=== PATIENT | male | born 1965 | race African-American/Black ===

== ENCOUNTER 2018-06-15 13:48 | Day surgery (SDC) | payer BC ==
[2018-06-12 11:23] VITALS: BMI 24.9
[2018-06-15] MEDS ORDERED: BUPIVACAINE HCL/PF 0.5% (5MG/ML) 10 ML VIAL ONE (14:32)
--- NOTE | 2018-06-15 14:36 | HP ---
History & Physical Update - Physical Physical: No Change - Assessment Assessment: No Change - Plan Plan: No Change
[2018-06-15] MEDS ORDERED: SUCCINYLCHOLINE CHLORIDE 200 MG/10 ML VIAL ONE (14:48)
[2018-06-15] MEDS ORDERED: MIDAZOLAM HCL 2 MG/2 ML SINGLE DOSE VIAL ONE (14:48)
[2018-06-15] MEDS ORDERED: PROPOFOL 20 ML ONE ×4 (14:49→15:20)
[2018-06-15] MEDS ORDERED: LIDOCAINE HCL 2% 100 MG/5 ML DISP.SYRIN ONE (14:49)
[2018-06-15] MEDS ORDERED: ceFAZolin SODIUM 1 GM VIAL ONE (15:06)
[2018-06-15] MEDS ORDERED: BUPIVACAINE HCL/PF 0.5% (5MG/ML) 10 ML VIAL IJ ONE ×2 (15:12)
[2018-06-15] MEDS ORDERED: KETOROLAC TROMETHAMINE 30 MG/1 ML VIAL ONE (16:03)
--- NOTE | 2018-06-15 16:42 | OP ---
Operative Note - Note: Operative Date: 06/15/18 Pre-Operative Diagnosis: right inguinal hernia Operation: open right inguinal hernia repair with mesh Findings: as dictated Implants: mesh as dictated Post-Operative Diagnosis: Same as Pre-op Surgeon: Alber Casey Plate Developer: Adam Avila Anesthesiologist/RETAIL PHARMACY MANAGER: Annalise Villanueva Anesthesia: General, Local (10cc 1% lidocaine with epi and .5% marcaine injected to incision at beginning of case) Specimens Removed: right cord lipoma Estimated Blood Loss (mls): 20 (cc) Drains & Tubes with Location: none Fluid Volume Replaced (mls): 1 (L LR) Operative Report Dictated: Yes
--- NOTE | 2018-06-15 16:43 | SURG ---
Surgery Special Education Superintendent Note Special Education Superintendent: Adam Avila PA-C (Suzy) Date of Service: 06/15/18 Diagnosis: right inguinal hernia, reducible Procedure: open right inguinal hernia repair with mesh I was present for the entirety of the operative procedure. For further detail, please refer to operative report. Visit type - Case Type Case Type: Scheduled - Emergency Emergency Visit: No - New patient This patient is new to me today: Yes Date on this admission: 06/15/18 - Critical Care Critical Care patient: No
[2018-06-15] MEDS ORDERED: oxyCODONE HCL 5 MG TABLET PO PRN ×2 (16:49)
[2018-06-15] MEDS ORDERED: ONDANSETRON 4 MG/2 ML VIAL IVPUSH PRN (16:49)
[2018-06-15] MEDS ORDERED: LACTATED RINGERS SOLUTION 1,000 ML IV SCH (17:00)
[2018-06-15] MEDS ORDERED: ACETAMINOPHEN INJECTION 100 ML IVPB ONE (17:06)
[2018-06-15] MEDS ORDERED: ACETAMINOPHEN 1000 MG/100 ML VIAL (NON FORMULARY) IVPB ONE (17:10)
[2018-06-15 19:55] VITALS: BP 141/89; PULSE 85; TEMP 98.1
--- NOTE | 2018-06-16 02:31 | OP ---
DATE OF OPERATION: 06/15/2018 SURGICAL ATTENDING: Misti Bar MD PREOPERATIVE DIAGNOSIS: Right inguinal hernia. POSTOPERATIVE DIAGNOSIS: Right inguinal hernia. ANESTHESIA: General endotracheal. PROCEDURE: Right inguinal hernia repair with mesh. DESCRIPTION OF PROCEDURE: Patient was taken to the operating room and placed in the supine position, endotracheally intubated, prepped and draped in the usual sterile fashion. Local anesthesia was administered and a 5-cm incision was made in the right groin. This was carried down to the subcutaneous tissues and the external oblique fascia, which was lifted off of the underlying tissues and retracted. The spermatic cord was identified, dissected free from the surrounding tissues, surrounded by a Strawn drain. The hernia sac was identified alongside the spermatic cord. It was dissected off of the cord and isolated. A defect in the transversalis fascia medial to the epigastric vessels was also identified. Therefore, this was a pantaloon hernia. The epigastric vessels were clamped, cut, and tied. The hernia then became one hernia and was dissected free from the surrounding tissues. The lipoma of the cord as well as the sac was removed and sent to Pathology. The sac was suture ligated. A large mesh plug was then placed in the defect and sutured to the surrounding tissue. An onlay was then placed and sutured to the pubic tubercle medially, the inguinal ligament inferiorly, and the internal oblique superiorly. A keyhole was made for the spermatic cord to pass through. The back of the mesh was sutured down to the internal oblique. The repair appeared satisfactory. The external oblique fascia was closed with a running Vicryl stitch. The Hilda fascia was closed with interrupted 3-0 Vicryl and the skin was closed with a Monocryl. Dermabond was placed. The patient was then extubated, awakened, and taken to the recovery room in stable condition. Dr. Bar, the attending surgeon, was present throughout the entire procedure. MISTI BAR M.D. CHIP/[id number]
--- NOTE | 2018-06-18 17:25 | PATH ---
Surgical Pathology Report Patient Name: DANICA MCLEAN [facility]. Rec. #: [id number] /Age/Gender: 1965 (Age: 52) / M Account: [id number] Location: [facility] SURGICAL Taken: 06/15/2018 Received: 06/16/2018 Reported: 06/18/2018 Physicians: Alber Casey M.D. Specimen(s) Received A: RIGHT INGUINAL LIPOMA B: RIGHT INGUINAL HERNIAL SAC Clinical History Inguinal hernia right Final Diagnosis A. INGUINAL LIPOMA OF CORD, RIGHT, OPEN REPAIR OF INGUINAL HERNIA: BENIGN FIBROVASCULAR AND FIBROADIPOSE TISSUE. B. INGUINAL HERNIA SAC, RIGHT, OPEN REPAIR OF INGUINAL HERNIA: MESOTHELIAL LINED FIBROADIPOSE TISSUE CONSISTENT WITH HERNIA SAC. Electronically Signed Jumana Valenzuela M.D. Gross Description A. Received in formalin labeled "right inguinal lipoma of the cord" is a 4.0 x 1.8 x 1.0 cm portion of pop snell fibromembranous tissue with attached fat. Local [employer] sections are submitted in one cassette. B. Received in formalin labeled "right inguinal hernia sac," is a 3.0 x 1.2 x 0.8 cm portion of pop-snell fibromembranous tissue, consistent with a hernia sac. Local [employer] sections are submitted in one cassette. /06/16/201806/16/2018
== END 2018-06-15 19:45 | disposition home or self-care (01) ==
LOC: JASU-SURG 13:48
PROVIDERS: ATTEND Surgery
PROC: 0YU50JZ Supplement Right Inguinal Region with Synthetic Substitute, Open Approach (ICD-10-PCS; principal; 2018-06-15 14:00)
DX: K40.90 Unilateral inguinal hernia, without obstruction or gangrene, not specified as recurrent (principal)
CPT/HCPCS: 94760; J0131